=== PATIENT | female | born 1945 | race Caucasian/White ===

== ENCOUNTER 2018-07-18 06:12 | Day surgery (SDC) | payer BC, MEDICARE ==
[~2018-07-18 06:12] MED LIST: Buffered Lidocaine 0.9% SYRIN* 5 ML/SYR SYRINGE INTRADERM ONE
[2018-07-18] MEDS ORDERED: Heparin VIAL(*) 5000 UNITS/ML VIAL (FIVE THOUSAND) ONE (06:33)
[2018-07-18] MEDS ORDERED: ceFAZolin 2 GM PREMIX in ORs 2 GM/50 ML BAG IVPB ONE (06:34)
[2018-07-18] MEDS ORDERED: Dexamethasone IV* 4 MG/ML 1 ML (4 MG) ONE (06:34)
[2018-07-18] MEDS ORDERED: Scopolamine 1.5 mg* PATCH ONE (06:34)
[2018-07-18] MEDS ORDERED: Ondansetron INJ* 2 MG/ML VIAL ONE (06:34)
[2018-07-18] MEDS ORDERED: EPINEPHRINE 1 MG/ML 1 ML VIAL ONE (06:49)
[2018-07-18] MEDS ORDERED: Methylene Blue 0.5 %* 50 MG/10 ML AMP IV ONE (06:49)
[2018-07-18] MEDS ORDERED: Bupivacaine 0.25% SDV* 30 ML ONE (06:50)
[2018-07-18] MEDS ORDERED: Lidocaine 2% PF* 10 ML AMP ONE ×2 (06:50→07:09)
[2018-07-18] MEDS ORDERED: Sodium Bicarbonate 8.4% SYR* 10 ML SYRINGE ONE (06:50)
[2018-07-18] MEDS ORDERED: fentaNYL* 50 MCG/ML 2 ML VIAL (100 MCG VIAL) ONE ×2 (07:22→10:19)
[2018-07-18] MEDS ORDERED: Midazolam* 1 MG/ML 2 ML VIAL (2 MG) ONE ×2 (07:22→10:19)
[2018-07-18] MEDS ORDERED: fentaNYL* 50 MCG/ML 2 ML VIAL (100 MCG VIAL) IV PRN (08:20)
[2018-07-18] MEDS ORDERED: Naloxone* 0.4 MG/ML 1 ML VIAL IV PRN (08:20)
[2018-07-18] MEDS ORDERED: Lidocaine 2% PF * 5 ML VIAL ONE (10:19)
[2018-07-18] MEDS ORDERED: Rocuronium* 10 MG/ML VIAL ONE (10:19)
[2018-07-18] MEDS ORDERED: Propofol* 10 MG/ML 20 ML BTL IV PUSH ONE (10:19)
[2018-07-18] MEDS ORDERED: Acetaminophen TAB* 325 MG ONE (10:59)
[2018-07-18 12:34] VITALS: BP 112/64
[2018-07-18] MEDS ORDERED: Neostigmine Methylsulfate* 2 MG/2 ML SYRINGE ONE (14:03)
[2018-07-18] MEDS ORDERED: Glycopyrrolate IV* 0.2 MG/ML 1 ML VIAL ONE (14:03)
== END 2018-07-18 12:37 | disposition home or self-care (01) ==
LOC: OR 06:12
PROVIDERS: ATTEND Plastic Surgery
DX: N65.0 Deformity of reconstructed breast (principal); Z85.3 Personal history of malignant neoplasm of breast; K21.9 Gastro-esophageal reflux disease without esophagitis; K58.9 Irritable bowel syndrome, unspecified; M19.90 Unspecified osteoarthritis, unspecified site
CPT/HCPCS: A9270-GY; J0690; J1100; J1644; J2001; J2250; J2405; J2704; J3010

== ENCOUNTER 2021-10-15 05:33 | Observation (INO) ==
[2021-10-15] MEDS ORDERED: Buffered Lidocaine 1% SYRIN 1 ml INTRADERM ONE (06:00)
[2021-10-15] MEDS ORDERED: Lactated Ringers 1000 ml BAG 1,000 ML IV SCH ×2 (06:00→08:00)
[2021-10-15] MEDS ORDERED: ceFAZolin 2 GM PREMIX 2 GM/50 ML BAG ONE (06:08)
[2021-10-15] MEDS ORDERED: Lidocaine 2% PF 5 ML VIAL ONE (06:59)
[2021-10-15] MEDS ORDERED: Propofol 10 MG/ML 20 ML BTL ONE (06:59)
[2021-10-15] MEDS ORDERED: Ketamine HCL 50 mg/ml 10 ml VIAL (500 MG) ONE (07:01)
[2021-10-15] MEDS ORDERED: Ropivacaine 5 MG/ML 20 ML VIAL 0.5% (100 MG) ONE (07:02)
[2021-10-15] MEDS ORDERED: Midazolam 2 mg/2 ml VIAL 1 mg/ml 2 ml VIAL (2 mg) ONE (07:12)
[2021-10-15] MEDS ORDERED: Lidocaine 1% MPF 5 ML VIAL ONE (07:16)
[2021-10-15] MEDS ORDERED: ROPIVACAINE 5 MG/ML 30 ML BTL (0.5%) ONE (07:16)
[2021-10-15] MEDS ORDERED: Bupivacaine 0.5% SDV PF 30ML VIAL ONE (07:40)
[2021-10-15] MEDS ORDERED: Magnesium Hydroxide LIQ 30 ML UDC PO PRN (07:54)
[2021-10-15] MEDS ORDERED: Lactulose 30 ml UDC PO PRN (07:54)
[2021-10-15] MEDS ORDERED: diPHENhydraMINE IV 50 MG/ML 1 ml VIAL (BENADRYL) IV PRN (07:54)
[2021-10-15] MEDS ORDERED: Morphine 2 MG/ML SYRINGE IV PRN (07:54)
[2021-10-15] MEDS ORDERED: diPHENhydraMINE 25 mg TAB PO PRN (07:54)
[2021-10-15] MEDS ORDERED: Ondansetron ODT 4 mg TAB 4 MG TAB PO PRN (07:54)
[2021-10-15] MEDS ORDERED: Ondansetron 4 mg VIAL 2 MG/ML 2 ml VIAL IV PRN ×2 (07:54→09:10)
[2021-10-15] MEDS ORDERED: Acetaminophen IV 1 GM/100ML 100 ML IV ONE (08:03)
[2021-10-15] MEDS ORDERED: Dexamethasone IV 4 MG/ML VIAL 1 ml VIAL ONE (08:03)
[2021-10-15] MEDS ORDERED: Ondansetron 4 mg VIAL 2 MG/ML 2 ml VIAL ONE (08:03)
[2021-10-15] MEDS ORDERED: fentaNYL 100 mcg/2 ml 50 MCG/ML VIAL IV PRN (09:10)
[2021-10-15] MEDS ORDERED: DiMENhydriNATE IV 50 mg/ml 1 ml VIAL IV PUSH PRN (09:10)
[2021-10-15] MEDS ORDERED: HYDROmorphone 1 MG/1 ML SYRINGE IV PRN (09:10)
[2021-10-15] MEDS ORDERED: Naloxone 0.4 mg VIAL 0.4 mg/ml 1 ml VIAL IV PRN (09:10)
[2021-10-15] MEDS ORDERED: Acetaminophen IV 1 GM/100ML 100 ML IV PRN (09:10)
[2021-10-15] MEDS: Vitamin THERAPEUTIC TAB PO SCH (13:51)
[2021-10-15] MEDS: Magnesium Hydroxide LIQ 30 ML UDC PO SCH ×2 (13:51→23:17)
[2021-10-15] MEDS: ceFAZolin 1 GM ADVAN 1 GM in NS 0.9% 50 ML 50 ML IVPB SCH ×2 (15:50→23:46)
[2021-10-16 06:05] LABS: Hematocrit 35 % (35-47); Hemoglobin 11.6 g/dL (12.0-16.0); Mean Platelet Volume 7.3 fL (7.4-10.4); Platelet Count 272 10^3/uL (150-450)
[2021-10-16 06:22] LABS: Calcium 9.4 mg/dL (8.6-10.3); Potassium 4.4 mmol/L (3.5-5.0); eGFR CKD-EPI 66.3 (>60)
[2021-10-16] MEDS: ceFAZolin 1 GM ADVAN 1 GM in NS 0.9% 50 ML 50 ML IVPB SCH (07:54)
[2021-10-16] MEDS: Vitamin THERAPEUTIC TAB PO SCH (07:55)
[2021-10-16] MEDS: Magnesium Hydroxide LIQ 30 ML UDC PO SCH (11:07)
[2021-10-16 12:30] VITALS: BP 118/59
== END 2021-10-16 13:40 | disposition home or self-care (01) ==
LOC: SSU 05:33 → OR 05:33
PROVIDERS: ADMIT Orthopaedic Surgery Adult Reconstructive Orthopaedic Surgery; ATTEND Orthopaedic Surgery Adult Reconstructive Orthopaedic Surgery